=== PATIENT | female | born 1960 | race African-American/Black ===

== ENCOUNTER 2019-05-23 23:32 | Emergency (ER) | payer MEDICAID ==
[~2019-05-23] VITALS: Ht 157.5 cm; Wt 65.3 kg
--- NOTE | 2019-05-23 23:53 | Emergency Room Report ---
History of Present Illness General Chief Complaint: Nausea, Vomiting, and Diarrhea Source: Patient Present Illness HPI 58-year-old female with no past medical history. She does have a history of hysterectomy. She presents with chief complaint of abdominal pain and vomiting. Fish around 7-8 o'clock. Couple hours later she have epigastric pain and had couple episode of vomiting. No diarrhea. Denies any fever chills. No diarrhea. No trauma. Pain is crampy and sharp in nature. Pain is localized to the epigastric area. No radiation. Pain is 8 out of 10. Allergies: Coded Allergies: No Known Allergies (Unverified , 05/23/19) Patient History Past Medical History: see triage record, old chart reviewed Past Surgical History: hysterectomy Pertinent Family History: none Social History: Denies: smoking Last Menstrual Period: na Now: No Immunizations: other Reviewed Nursing Documentation: PMH: Agreed; PSxH: Agreed Review of Systems Eye: Denies: eye pain, blurred vision ENT: Denies: ear pain, nose congestion, throat swelling Respiratory: Denies: cough, shortness of breath Cardiovascular: Denies: chest pain, palpitations Gastrointestinal: Reports: abdominal pain, nausea, vomiting; Denies: diarrhea Musculoskeletal: Denies: back pain, joint pain Skin: Denies: rash Neurological: Denies: headache, numbness Endocrine: Denies: increased thirst, increased urine Hematologic/Lymphatic: Denies: easy bruising All Other Systems: negative except mentioned in HPI Physical Exam Vital Signs Date Time Temp Pulse Resp B/P (MAP) Pulse Ox O2 Delivery O2 Flow Rate FiO2 05/23/19 23:37 98.1 94 16 127/86 (100) 98 Room Air Vitals normal Sp02 EP Interpretation: reviewed, normal General Appearance: well appearing, no apparent distress, alert Head: normocephalic, atraumatic Eyes: bilateral eye PERRL, bilateral eye EOMI ENT: hearing grossly normal, normal pharynx Neck: full range of motion, supple, no meningismus Respiratory: chest non-tender, lungs clear, normal breath sounds Cardiovascular #1: regular rate, rhythm, no murmur Gastrointestinal: no mass, no organomegaly, no bruit, non-distended, abnormal bowel sounds, tenderness - Epigastric Musculoskeletal: back normal, gait/station normal, normal range of motion Psychiatric: mood/affect normal Medical Decision Making Diagnostic Impression: Primary Impression: Cholelithiasis Qualified Codes: K80.20 - Calculus of gallbladder without cholecystitis without obstruction Additional Impression: Abdominal pain Qualified Codes: R10.13 - Epigastric pain ER Course This patient presents with abdominal pain with vomiting after eating fried fish. Most likely cause of her pain is biliary colic. She had several episode like this before. This is the worse. Denies any trauma. No evidence of acute abdomen or obstruction. Will discharge home. CT/MRI/US Diagnostic Results CT/MRI/US Diagnostic Results : Imaging Test Ordered: CT abdomen and pelvis Impression Read by radiologist. Gallstone. Last Vital Signs Date Time Temp Pulse Resp B/P (MAP) Pulse Ox O2 Delivery O2 Flow Rate FiO2 05/23/19 23:37 98.1 94 16 127/86 (100) 98 Room Air Status: improved Disposition: HOME, SELF-CARE Condition: Stable Scripts Ibuprofen* (MOTRIN*) 600 Mg Tablet 600 MG ORAL THREE TIMES A DAY, #30 TAB 0 Refills Prov: Rick Elliott MD 05/24/19 Hydrocodone/Acetaminophen 5-325* (HYDROCODONE/ACETAMINOPHEN 5-325*) 1 Each Tablet 1 TAB ORAL Q6H PRN for For Pain, #15 TAB 0 Refills Prov: Rick Elliott MD 05/24/19 Additional Instructions: Follow-up with your doctor in 7 days. You may need a referral to see a surgeon. Return if symptoms worsen. Rick Elliott MD May 23, 2019 23:53
[2019-05-24] MEDS ORDERED: Ketorolac 30mg Inj IV ONE
[2019-05-24 00:05] VITALS: BP 127/86
--- NOTE | 2019-05-24 00:32 | NUR ---
ED Nurse Note: Patient going over to CT accompanied by technical project manager.
[2019-05-24 00:34] LABS: HEMATOCRIT 42.2 % (37.0-47.0); HEMOGLOBIN 13.8 G/DL (12.0-16.0); MEAN CORPUSCULAR VOLUME 91 FL (80-99); PLATELET COUNT 341 K/UL (150-450); RED BLOOD COUNT 4.65 M/UL (4.20-5.40); RED CELL DISTRIBUTION WIDTH 13.1 % (11.6-14.8)
[2019-05-24 00:45] LABS: ANION GAP 13 mmol/L (5-15); BLOOD UREA NITROGEN 16 mg/dL (7-18); CALCIUM 9.5 MG/DL (8.5-10.1); CARBON DIOXIDE 26 MMOL/L (21-32); CHLORIDE 106 MMOL/L (98-107); CREATININE 0.8 MG/DL (0.55-1.30); POTASSIUM 4.1 MMOL/L (3.5-5.1); SODIUM 144 MMOL/L (136-145)
--- NOTE | 2019-05-24 00:45 | NUR ---
ED Nurse Note: Patient returned from CT.
[2019-05-24 00:49] LABS: ALANINE AMINOTRANSFERASE 40 U/L (12-78); ALBUMIN 4.4 G/DL (3.4-5.0); ALKALINE PHOSPHATASE 121 U/L (46-116); ASPARTATE AMINO TRANSFERASE 19 U/L (15-37); BILIRUBIN,TOTAL 0.4 MG/DL (0.2-1.0)
--- NOTE | 2019-05-24 01:14 | Diagnostic Imaging Report ---
EXAM: CT Abdomen and Pelvis Without Intravenous Contrast CLINICAL HISTORY: ABD PAIN TECHNIQUE: Axial computed tomography images of the abdomen and pelvis without intravenous contrast. CTDI is 17.1 mGy and DLP is 962 mGy-cm. One or more of the following dose reduction techniques were used: automated exposure control, adjustment of the mA and or kV according to patient size, use of iterative reconstruction technique. COMPARISON: No relevant prior studies available. FINDINGS: Lung bases: Unremarkable. No mass. No consolidation. ABDOMEN: Liver: Unremarkable. Gallbladder and bile ducts: Gallstones. No evidence of acute cholecystitis. Pancreas: Unremarkable. Spleen: Unremarkable. Adrenals: Unremarkable. Kidneys and ureters: Nonobstructing calculi within the right kidney. Stomach and bowel: Noninflamed colonic diverticulosis. PELVIS: Appendix: Appendix is unremarkable. Bladder: Unremarkable. Reproductive: Uterus is surgically absent. ABDOMEN and PELVIS: Intraperitoneal space: Unremarkable. Bones joints: No acute fracture. No dislocation. Soft tissues: Unremarkable. Vasculature: Unremarkable. No abdominal aortic aneurysm. Lymph nodes: Unremarkable. IMPRESSION: 1. Gallstones. No evidence of acute cholecystitis. 2. Nonobstructing calculi within the right kidney.
[2019-05-24] MEDS ORDERED: HYDROCODON-ACE1 EA15 ORAL (01:37)
[2019-05-24] MEDS ORDERED: IBUPROFEN600 MG ORAL (01:37)
--- NOTE | 2019-05-24 01:40 | NUR ---
ED Nurse Note: Patient cleared for discharge, ID band removed, IV removed. Patient verbalized understanding of discharge instructions. Patient departed with all belongings accompanied by her son.
[2019-05-24 01:50] VITALS: BP 127/86
== END 2019-05-24 01:50 | disposition home or self-care (01) ==
LOC: EMR 23:55
DX: K80.20 Calculus of gallbladder without cholecystitis without obstruction (principal); R10.13 Epigastric pain; Z90.710 Acquired absence of both cervix and uterus
CPT/HCPCS: 36415; 74176; 80053; 83690; 85007; 85025; 96361; 96374; 96375; J1885; J2405; Z7502; 99284; J7030